=== PATIENT | female | born 1955 | race Caucasian/White ===

== ENCOUNTER → 2016-10-30 | Outpatient (REF) | payer OTHER ==
[~2016-10-30] MED LIST: AMLO10TA2 PO; AVAP150T31 PO; BYST20TA2 PO; GLIP10TA13 PO; HYDR10TAB PO; IRON65TA PO; JANU100T PO; LASI20TA PO; VITA100041 PO
[2016-10-30 14:04] LABS: PERCENT SATURATION 12.4 % (13.2-37.4)
== END ==
LOC: M LAB REF 12:43
PROVIDERS: ATTEND Internal Medicine Nephrology
DX: D50.9 Iron deficiency anemia, unspecified (principal)

== ENCOUNTER → 2018-03-30 | Outpatient (CLI) | payer OTHER | LOC: M RAD 07:26 | DX: N18.3 Chronic kidney disease, stage 3 (moderate) (principal); N28.1 Cyst of kidney, acquired | CPT/HCPCS: 76775 ==

== ENCOUNTER → 2019-12-02 | Outpatient (REF) | payer OTHER ==
[~2019-12-02] MED LIST changes: -AMLO10TA2 PO; +AMLO10TA5 PO; -GLIP10TA13 PO; +GLIP10TA18 PO; -LASI20TA PO; +LASI20TA3 PO; +VITA-182 PO; -VITA100041 PO
[2019-12-02 14:54] LABS: PERCENT SATURATION 11.6 % (13.2-45.0)
== END ==
LOC: M LAB REF 13:23
PROVIDERS: ATTEND Nurse Practitioner Family
DX: D50.9 Iron deficiency anemia, unspecified (principal)

== ENCOUNTER → 2020-09-28 | Outpatient (REF) | payer OTHER ==
[~2020-09-28] MED LIST changes: +AIRB1CHW PO; +ALLO100T PO; -AMLO10TA5 PO; +AMLO1TAB25 PO; +B-12100010 PO; +CALC-263 PO; +CALC1TAB30 PO; +FISH1000 PO; +GLIP2.5T6 PO; +KP V1TAB2 PO; +LEVO50TA5 PO; +NORV5TAB PO
[2020-09-28 17:57] LABS: BACTERIA, URINE AUTO 1+ (NEGATIVE); RBC, URINE AUTO 0 /HPF (0-3); SQUAMOUS EPITHELIAL CELL UR AU 4 /HPF (0-6); WBC, URINE AUTO 6 /HPF (0-3)
== END ==
LOC: M LAB REF 17:08
PROVIDERS: ATTEND Nurse Practitioner Family
DX: R31.0 Gross hematuria (principal)

== ENCOUNTER → 2020-12-07 | Outpatient (CLI) | payer OTHER ==
[~2020-12-07] MED LIST changes: +D3 +TAB PO; +VITA-243 PO
--- NOTE | 2020-12-07 09:09 | REP ---
INDICATION: NEOPLASM OF UTERUS. COMPARISON: Abdomen/pelvis CT dated 10/02/2020 none identified and enlarged uterus. TECHNIQUE: Transabdominal ultrasound of the pelvis. Patient declines endovaginal imaging. FINDINGS: The uterus is anteverted and significantly enlarged overall measuring 20.3 x 13.8 x 12.5 cm. There is a focal mass in the uterine fundus with heterogeneous echotexture measuring 13.9 x 13.4 x 12.9 cm, likely a large leiomyoma. The endometrium is obscured by the large uterine mass. The right and left ovaries are obscured by the large uterus and by bowel gas. The bladder is compressed by the enlarged uterus and partially filled. IMPRESSION: Large heterogeneous fundal uterine mass as described, likely a large leiomyoma. The endometrium and both right and left ovaries are obscured by this large mass and by bowel gas. No free fluid is identified. <Electronically signed by Seth Gomez > 12/07/20 0905
== END ==
LOC: M RAD 08:21
PROVIDERS: ATTEND Obstetrics & Gynecology
DX: D39.0 Neoplasm of uncertain behavior of uterus (principal)

== ENCOUNTER → 2020-12-09 | Outpatient (CLI) | payer OTHER ==
[~2020-12-09] MED LIST changes: +IRON65TA2 PO; +LEVO-86 PO
== END ==
LOC: M LABSMTC 09:13
PROVIDERS: ATTEND Anesthesiology
DX: Z01.812 Encounter for preprocedural laboratory examination (principal)

== ENCOUNTER 2020-12-14 06:01 | Day surgery (SDC) | payer OTHER ==
[~2020-12-14] VITALS: Ht 149.9 cm; Wt 121.5 kg
[~2020-12-14 06:01] MED LIST changes: -IRON65TA2 PO; -LEVO-86 PO; +LR 1,000 ML IV ONE
[2020-12-14] MEDS ORDERED: LEVO-86 PO (06:35)
[2020-12-14] MEDS ORDERED: IRON65TA2 PO (06:35)
[2020-12-14] MEDS ORDERED: ONDANSETRON 4MG/2ML VIAL As Ordered ONE (07:19)
[2020-12-14] MEDS ORDERED: LIDOCAINE 2% 100MG/5ML SDV (FOR ANES.) As Ordered ONE (07:19)
[2020-12-14] MEDS ORDERED: propofoL 200 MG/20 ML VIAL As Ordered ONE (07:19)
[2020-12-14] MEDS ORDERED: dexameTHASONE 4 MG/ML 1ML VIAL (J1100 PER 1MG) As Ordered ONE (07:19)
[2020-12-14] MEDS ORDERED: SCOPOLAMINE 1MG TRANSDERMAL PATCH TOP ONE (07:20)
[2020-12-14] MEDS ORDERED: fentaNYL 100 MCG/2 ML INJECTION (J3010) As Ordered ONE (07:20)
[2020-12-14] MEDS ORDERED: MIDAZOLAM INJ 2MG/2ML VIAL (J2250 PER 1MG) As Ordered ONE (07:20)
[2020-12-14] MEDS ORDERED: LIDOCAINE 5% OINT 30GM TUBE As Ordered ONE (07:24)
[2020-12-14] MEDS ORDERED: oxyCODONE 5MG TAB PO PRN (08:55)
[2020-12-14] MEDS ORDERED: ONDANSETRON 4MG/2ML VIAL IV PRN (08:55)
[2020-12-14] MEDS ORDERED: HYDROMORPHONE HCL 0.5 MG/ 0.5 ML SYRINGE (J1170 PER 1) IV PRN (08:55)
[2020-12-14] MEDS ORDERED: fentaNYL 100 MCG/2 ML INJECTION (J3010) IV PRN (08:55)
[2020-12-14] MEDS ORDERED: LR 1,000 ML IV SCH ×2 (08:55→09:00)
[2020-12-14] MEDS ORDERED: ACETAMINOPHEN TAB 650MG DOSE (2X325MG) PO PRN (09:00)
[2020-12-14 09:45] VITALS: BP 158/88
--- NOTE | 2020-12-14 10:29 | RO ---
OPERATIVE NOTE DATE OF OPERATION: 12/14/2020 PREOPERATIVE DIAGNOSIS/INDICATIONS FOR SURGERY: Postmenopausal bleeding and large fibroids. POSTOPERATIVE DIAGNOSIS: Postmenopausal bleeding and large fibroids. PROCEDURE: Fractional dilatation and curettage, hysteroscopy with use of MyoSure. SURGEON: Liliana Clay MD RADIOLOGY ORDERLY: None. ANESTHESIA: Laryngeal mask airway (LMA). BRIEF DESCRIPTION OF PROCEDURE AND FINDINGS: Heather was brought to the operating room where sufficient LMA anesthesia was induced, and she was prepped, draped, and positioned in the usual sterile fashion. We could not place the weighted speculum; in fact, the patient had a slight vaginal abrasion just from the prep due to small vagina. She had a large fibroid uterus extending well above umbilicus, and the uterus was well supported. So, we were not able to see the cervix particularly well but were able to grasp it with a single-toothed tenacula and then use those and guide the dilators and the scope manually and endocervical curettage was carried out with the Adyian, and hysteroscopy was carried out. We had the XL available but the patient has an atrophic, tiny menopausal cavity and, in fact, there is extension beyond the top of the cavity that does not perforate the uterus because the uterus reaches well up into the abdomen but the cavity itself was quite small with a tiny bit of shallow polypoid growth so we did make sure to sample that and send that with the pathology but it is not clear to me that this is not simply a result of the pressure on the tissues with the fibroids or whether there is actually an endocervical endometrial lesion. So, of course, pathology was sent and that was all sampled and, of course, some pictures taken to document that. The cavity itself does not extend up into the abdomen and that fits very well with the ultrasound where they could not find the endometrium in this distorted uterus and would be expected based on the findings of the cavity itself being well down in the pelvis and the uterus just being all fibroid and the cavity not contiguous with all that. So, we made sure to very carefully sample. The patient did spot a little from where it was sampled and, of course, from that tiny vaginal abrasion but there is no undue bleeding. After finishing with the MyoSure, a final pass of the curette was also taken. Normal cry was noted and the procedure ended with the instruments removed; a little pressure placed upon that abrasion with the gauze, and then the procedure ended. ESTIMATED BLOOD LOSS FOR THE PROCEDURE: about 10 mL. FLUID REPLACEMENT: Crystalloid. COMPLICATIONS: None. CONDITION AND DISPOSITION: Heather tolerated the procedure well and was recovering in the recovery room in good condition.
== END 2020-12-14 09:58 | disposition home or self-care (01) ==
LOC: M SDC 06:01
PROVIDERS: ATTEND Obstetrics & Gynecology
DX: N85.00 Endometrial hyperplasia, unspecified (principal); D25.9 Leiomyoma of uterus, unspecified; I10 Essential (primary) hypertension; E78.5 Hyperlipidemia, unspecified; E11.9 Type 2 diabetes mellitus without complications; Z79.899 Other long term (current) drug therapy
CPT/HCPCS: 58558; 88305; J1100; J2250; J2405; J3010

== ENCOUNTER → 2020-12-30 | Outpatient (CLI) | payer OTHER ==
[~2020-12-30] MED LIST changes: +IRON65TA2 PO; +LEVO-86 PO; -LR 1,000 ML IV ONE
== END ==
LOC: M LABSMTC 09:47
PROVIDERS: ATTEND Anesthesiology
DX: Z01.812 Encounter for preprocedural laboratory examination (principal); Z11.52 Encounter for screening for COVID-19

== ENCOUNTER → 2021-01-09 | Outpatient (CLI) | payer OTHER | LOC: M LABSMTC 09:32 | PROVIDERS: ATTEND Obstetrics & Gynecology | DX: Z01.812 Encounter for preprocedural laboratory examination (principal) ==

== ENCOUNTER 2021-01-11 08:41 | Day surgery (SDC) | payer OTHER ==
[~2021-01-11] VITALS: Ht 149.9 cm; Wt 120.7 kg
[~2021-01-11 08:41] MED LIST changes: +LR 1,000 ML IV ONE; +SCOPOLAMINE 1MG TRANSDERMAL PATCH TOP ONE; +ceFAZolin SOD 2 GM in IV 1 EA IV ONE
[2021-01-11] MEDS ORDERED: **UNRESOLVED NON-FORMULARY MED ORDER XX SCH (09:00)
[2021-01-11 09:17] LABS: HEMATOCRIT 43.6 % (36.0-47.0); HEMOGLOBIN 13.2 g/dl (12.0-15.5); MEAN CORPUSCULAR HEMOGLOBIN 28.4 pg (27.0-33.0); MEAN CORPUSCULAR HGB CONC 30.3 g/dl (32.0-36.5); PLATELET COUNT, AUTOMATED 258 10^3/uL (150-450); RED BLOOD COUNT 4.64 10^6/uL (4.00-5.40); WHITE BLOOD COUNT 11.4 10^3/uL (4.0-10.0)
[2021-01-11] MEDS ORDERED: ROCURONIUM BROMIDE 50 MG/5 ML VIAL As Ordered ONE ×2 (10:28→12:18)
[2021-01-11] MEDS ORDERED: SUGAMMADEX SODIUM 500 MG/5 ML VIAL (BRIDION) As Ordered ONE (10:28)
[2021-01-11] MEDS ORDERED: ONDANSETRON 4MG/2ML VIAL As Ordered ONE (10:28)
[2021-01-11] MEDS ORDERED: dexameTHASONE 4 MG/ML 1ML VIAL (J1100 PER 1MG) As Ordered ONE (10:28)
[2021-01-11] MEDS ORDERED: KETOROLAC 60MG 2ML VIAL As Ordered ONE (10:28)
[2021-01-11] MEDS ORDERED: ACETAMINOPHEN 1000MG 100ML IV BTL (OFIRMEV) (J0131 PER 10MG) As Ordered ONE ×2 (10:28→12:20)
[2021-01-11] MEDS ORDERED: LIDOCAINE 2% 100MG/5ML SDV (FOR ANES.) As Ordered ONE ×2 (10:28→12:18)
[2021-01-11] MEDS ORDERED: propofoL 200 MG/20 ML VIAL As Ordered ONE ×3 (10:28→12:11)
[2021-01-11] MEDS ORDERED: fentaNYL 100 MCG/2 ML INJECTION (J3010) As Ordered ONE (10:29)
[2021-01-11] MEDS ORDERED: MIDAZOLAM INJ 2MG/2ML VIAL (J2250 PER 1MG) As Ordered ONE (10:29)
[2021-01-11] MEDS ORDERED: ceFAZolin 2 GM/D5W 50 ML IV BAG (J0690 PER 500MG) As Ordered ONE (11:12)
[2021-01-11] MEDS ORDERED: ePHEDrine SULFATE 25 MG/5 ML(5MG/ML) SYRINGE As Ordered ONE ×3 (12:11→14:49)
[2021-01-11] MEDS ORDERED: ALBUTEROL 6.7GM INHALER **FOR ANES. CART/OMNICELL ONLY As Ordered ONE (12:11)
[2021-01-11] MEDS ORDERED: HYDROmorphone HCL 2 MG/ML 1ML VIAL (J1170) As Ordered ONE (12:50)
[2021-01-11] MEDS ORDERED: ceFAZolin 1GM VIAL (J0690 PER 500MG) As Ordered ONE (15:40)
[2021-01-11] MEDS ORDERED: MORPHINE 1MG/ML IN 0.9% NACL 100ML IV BAG As Ordered ONE (16:17)
[2021-01-11] MEDS ORDERED: EPIDURAL/PCA KEYS XX PRN (16:45)
[2021-01-11] MEDS: LR 1,000 ML IV SCH ×2 (16:45→20:26)
[2021-01-11] MEDS ORDERED: MORPHINE 1MG/ML IN 0.9% NACL 100ML IV BAG IV PRN (16:45)
[2021-01-11] MEDS ORDERED: NALBUPHINE HCL 10 MG/ML AMP (J2300) IV PRN (16:45)
[2021-01-11] MEDS ORDERED: NALOXONE INJ 0.4MG/1ML VIAL (J2310 PER 1MG) IV PRN (16:45)
[2021-01-11] MEDS ORDERED: diphenhydrAMINE 50MG/ML VIAL (J1200) IV PRN (16:45)
[2021-01-11] MEDS ORDERED: NS 1,000 ML IV SCH (16:45)
[2021-01-11] MEDS ORDERED: METOCLOPRAMIDE INJ 10MG/2ML VIAL (J2765 PER 1) IV PRN (17:10)
[2021-01-11] MEDS ORDERED: oxyCODONE 5MG TAB PO PRN (17:10)
[2021-01-11] MEDS ORDERED: LR 1,000 ML IV SCH (17:10)
[2021-01-11] MEDS ORDERED: HYDROMORPHONE HCL 0.5 MG/ 0.5 ML SYRINGE (J1170 PER 1) IV PRN (17:10)
[2021-01-11] MEDS ORDERED: fentaNYL 100 MCG/2 ML INJECTION (J3010) IV PRN (17:10)
[2021-01-11] MEDS ORDERED: ONDANSETRON 4MG/2ML VIAL IV PRN (17:10)
[2021-01-11 17:23] LABS: HEMATOCRIT 40.7 % (36.0-47.0); HEMOGLOBIN 12.8 g/dl (12.0-15.5); MEAN CORPUSCULAR HGB CONC 31.4 g/dl (32.0-36.5); MEAN CORPUSCULAR VOLUME 92.1 fl (80.0-96.0); PLATELET COUNT, AUTOMATED 235 10^3/uL (150-450); RED BLOOD COUNT 4.42 10^6/uL (4.00-5.40); WHITE BLOOD COUNT 22.4 10^3/uL (4.0-10.0)
[2021-01-11 17:45] VITALS: BP 131/77
[2021-01-11 18:15] VITALS: BP 126/71
[2021-01-11 18:45] VITALS: BP 127/70
[2021-01-11 18:49] VITALS: O2SAT 97
[2021-01-11 22:00] VITALS: BP 128/68
[2021-01-12 00:28] VITALS: O2SAT 94
[2021-01-12 02:00] VITALS: BP 130/78
[2021-01-12] MEDS: LR 1,000 ML IV SCH (04:12)
[2021-01-12 05:59] LABS: HEMATOCRIT 35.6 % (36.0-47.0); MEAN CORPUSCULAR HEMOGLOBIN 28.7 pg (27.0-33.0); MEAN CORPUSCULAR HGB CONC 30.9 g/dl (32.0-36.5); PLATELET COUNT, AUTOMATED 248 10^3/uL (150-450); RED BLOOD COUNT 3.83 10^6/uL (4.00-5.40)
[2021-01-12 06:00] VITALS: BP 139/63
[2021-01-12] MEDS ORDERED: NORCO, ANEXSIA 5/325MG TABLET (HYDROcodone/ACETAMINOPHEN) PO PRN (06:00)
[2021-01-12] MEDS ORDERED: LEVOTHYROXINE 75MCG TABLET (0.075MG) PO SCH (06:00)
[2021-01-12 06:15] LABS: CREATININE FOR GFR 1.58 MG/DL (0.55-1.30); GLOMERULAR FILTRATION RATE 34.9 (>45)
[2021-01-12] MEDS ORDERED: HumaLOG INSULIN (NovoLOG) PER UNIT SC ONE (08:30)
[2021-01-12 08:57] VITALS: BP 143/70
[2021-01-12 09:00] VITALS: O2SAT 94
[2021-01-12] MEDS ORDERED: allopurinoL 100 MG TAB PO SCH (09:00)
[2021-01-12] MEDS ORDERED: SITagliptin 50 MG TAB (JANUVIA) PO SCH (09:00)
[2021-01-12] MEDS ORDERED: amLODIPine 5 MG TAB PO SCH (09:00)
[2021-01-12] MEDS ORDERED: FUROSEMIDE 20 MG TAB PO SCH (09:00)
[2021-01-12] MEDS ORDERED: NEBIVOLOL 5 MG TAB (BYSTOLIC) PO SCH (09:00)
--- NOTE | 2021-01-12 09:41 | RO ---
OPERATIVE NOTE DATE OF OPERATION: 01/11/2021 PREOPERATIVE DIAGNOSIS/INDICATION FOR SURGERY: Large fibroid uterus. She also had history of hyperplasia with atypia. POSTOPERATIVE DIAGNOSIS: Large fibroid uterus. She also had hyperplasia with atypia with additional diagnosis of umbilical hernia. PROCEDURE: Total abdominal hysterectomy, bilateral salpingo-oophorectomy with removal of 1529 gm tumor after it had dried, as well as separate umbilical hernia with repair and cystotomy with repair and cystourethroscopy. SURGEON: Liliana Clay MD [employer]: None. ANESTHESIA: General tracheal anesthesia. BRIEF DESCRIPTION OF PROCEDURE AND FINDINGS: Heather was brought to the operating room where sufficient general tracheal anesthesia was induced. A vertical midline incision was made as had been discussed with her preoperatively and dissection was continued to the subcutaneous tissues. Bovie used as needed until the rectus fascia was reached. There was fullness near the umbilical stalk and we continued our dissection using the scalpel to dissect through the fascia and entered the peritoneum superiorly and began to dissect that down and ran into an omental herniation into a clear umbilical hernia. We resected the sac and the umbilical contents, some of which appeared necrotic and we did take some dissection to do this, but there was good hemostasis throughout this dissection, but the omental hernia was blocking our access, as well as the patient having some complaints about that. It did appear scarred in place and again some aspects of it appeared to have undergone some necrotic change. We then continued the dissection inferiorly and attempted to deliver the fibroid uterus. We had a reasonable size incision, but there were adhesions along the anterior left side to bowel and anterior abdominal wall. We dissected down some of those adhesions. We really could feel the normal anatomy. As it happens, this fibroid started in the lower uterine segment and shoved all that up and so at least identifiable uterine area did exists down in the pelvis, but it was well down under this, which was up above umbilicus. We worked very carefully anteriorly using the Metzenbaum, tried to dissect away those anterior adhesions, but we did, as we were trying to free the uterus, run into bladder there. At this point, we were not sure where on the bladder; it turned out this was on the dome; but at the time of the dissection, at this point we were not sure. We labeled that in this robustly built patient so we would be able to find it later and continued our dissection and in fact used this access so that we could delineate the bladder and try to free anteriorly; with dissection had to be very careful in its progression, there were several accessory blood vessels that were also there and dissected along on the left side. The rim of it did run over top of this fibroid, so it appeared to be rising sort of from the lower uterine segment and distorting that area. We were able to eventually free enough of the tissues to identify the ovary and fallopian tube on the left and that round ligament. We had dissected that down and get the bladder off and we decided to take the fibroid off because we just could not get access to the pelvis to free the other blood supply. So we resected much of the fibroid. It was degenerated and so it is solid, which she did have some oozing. With that, we were able to get access on the left side to the vascular supply and clamped, transected and ligated in several sections at least to get to the point of the broad ligament; and at this point, we still did not have access on the left side even to round, so we had to continue our progression very carefully. During this time period, the patient did have oozing from the uterus, but while we moved as quickly as we could and used the Bovie as appropriate, we still could not fully control that while elevating the uterus until we got the anatomy carefully identified, given that the anatomy had been greatly distorted, but had not loosen up the vascular supply, we really had to work carefully as we went down so as to avoid ureteral injury, etc. We decided, when we finally reached the broad ligament on the right side, to work medially to that and then come back for that ovary and tube, so carefully clamped transected and ligated that pedicle and then worked down the lateral aspect of what remained of the uterus there and then resecting as we went to achieve access. We continued to carefully clamp, transect and ligate along the lateral aspects of the uterus to control the uterine vasculature using the Samantha Farleyer and a 0 Vicryl suture, which was used throughout this portion of the case. With the cystotomy identified and the bladder thus more readily identified, we were able to get the bladder fully away down past the level of the cervix so that we could carefully come down to the uterosacral, clamp, transect and ligate them and then make the colpotomy and circumferential excise the entirety of the cervix and the remainder of the uterus that was attached. We then oversewed the vaginal cuff with angle stitches of 0 Vicryl and running lock stitches and 0 Vicryl to close the cuff. We found a couple of pumpers on the left side, which we then oversewed as well and then at this point, finally had good hemostasis. We then after irrigating, placing pressure, confirming a good hemostasis, went back got the right ovary and tube and then went back and used the suture where we had identified it. The patient had a very redundant bladder and somewhat reductant tissues and so fortunately we had labeled this and we were able to identify about a 1 cm cystotomy in the dome. We did a full-thickness closure with 4-0 plain just to make sure we had full closure and then we imbricated that with two layers of 3-0 Vicryl with only suturing the muscularis and then puckering it in and puckering it in with those, sort of, pursestring style closures; at which point, we had waterproof closure. We went ahead with moist covering on the patient, we frog legged her and were able to identify that we had a waterproof closure and no other evidence of injury to the bladder, normal ureters, although those pictures are not optimal, the view is not optimal with the patient in that position because we could not fully manipulate the scope, but we were able to use the 70 degree to get the views we needed. Then having scoped her and confirmed the cystotomy repair was good, we removed the laps we had placed and confirmed again that we had good hemostasis; but at that point, we already had probably a little over 2000; the total estimated blood loss was 2100, so we were under 2000 estimated blood loss and we had not even closed the subcutaneous and the fascia, so we did put some Gelfoam down at the cuff. We just did not want to risk having her have any further problem we could prevent and of course we had already irrigated copiously and then we went ahead and closed the hernia with 0 Ethibond and then closed the peritoneum with 0 Vicryl and used #1 PDS on a loop to close the fascia. We used #1 plain for the subcuticular tissues and a couple of layers of that because of the depth and then used hortencia on the skin. Again estimated blood loss for the entirety of the case was 2100. Fluid replacement: Crystalloid and 2 units of packed red blood cells (PRBCs). I think the second one will finish in recovery. Drains: None except the Garcia. Complications: We did have a cystotomy with repair. I have every expectation that will heal well and again weight of the lesion 1529 gm. Now it is at the end of the case after some degree of drying. Specimens: Again, uterus, ovary and tubes along with a lesion and of course the hernia sac and contents. Condition and Disposition; Heather tolerated the procedure well and was recovering in the recovery room in good condition.
[2021-01-12 10:00] VITALS: BP 147/78
[2021-01-12] MEDS ORDERED: HYDR-3713 PO (11:38)
== END 2021-01-12 12:40 | disposition home or self-care (01) ==
LOC: M SDC 08:41 → M MSPAV 17:34 → M SDC 01-12 12:40
PROVIDERS: ATTEND Obstetrics & Gynecology
DX: D25.9 Leiomyoma of uterus, unspecified (principal); N99.71 Accidental puncture and laceration of a genitourinary system organ or structure during a genitourinary system procedure; R10.2 Pelvic and perineal pain; K42.9 Umbilical hernia without obstruction or gangrene; N85.00 Endometrial hyperplasia, unspecified; I10 Essential (primary) hypertension; E03.9 Hypothyroidism, unspecified; E11.9 Type 2 diabetes mellitus without complications; Z79.899 Other long term (current) drug therapy; Z79.84 Long term (current) use of oral hypoglycemic drugs
CPT/HCPCS: 36415; 36430; 49585; 58150; 82330; 82565; 82947; 84132; 84295; 85014; 85027; 86850; 86900; 86901; 86920; 88302; 88307; 88341; 88342; 96360; 96361; J0131; J0690; J1100; J1170; J2250; J2405; J3010; P9016

== ENCOUNTER → 2022-06-27 | Outpatient (REF) | payer MEDICARE, OTHER ==
[~2022-06-27] MED LIST changes: +HYDR-3713 PO; -LR 1,000 ML IV ONE; -SCOPOLAMINE 1MG TRANSDERMAL PATCH TOP ONE; -ceFAZolin SOD 2 GM in IV 1 EA IV ONE
== END ==
LOC: M LAB REF 17:15
PROVIDERS: ATTEND Nurse Practitioner Family
DX: D50.9 Iron deficiency anemia, unspecified (principal)

== ENCOUNTER → 2023-03-28 | Outpatient (REF) | payer MEDICARE, OTHER ==
[2023-03-28 18:01] LABS: TOTAL PROTEIN,RANDOM URINE 114.1 MG/DL (0.0-14.0)
[2023-03-28 18:04] LABS: CREATININE,RANDOM URINE 61.2 MG/DL
== END ==
LOC: M LAB REF 16:49
PROVIDERS: ATTEND Nurse Practitioner Family
DX: R80.9 Proteinuria, unspecified (principal)

== ENCOUNTER → 2024-03-24 | Outpatient (REF) | payer MEDICARE, OTHER ==
[~2024-03-24] MED LIST changes: +BYST1TAB PO; -BYST20TA2 PO; +HYDR-161 PO; -HYDR10TAB PO
== END ==
LOC: M LAB REF 17:10
PROVIDERS: ATTEND Nurse Practitioner Family
DX: N39.0 Urinary tract infection, site not specified (principal)

== ENCOUNTER → 2025-04-05 | Outpatient (CLI) | payer MEDICARE, OTHER ==
[~2025-04-05] MED LIST changes: +CYCL-707; +DOCU100C16; +ELIQ2.5T PO; +GLIP-320 PO; -GLIP10TA18 PO; +GLIP2.5T46 PO; -GLIP2.5T6 PO; +NEBI20TA2; +TRAD5TAB; +TRAV2.5D
== END ==
LOC: M ONCM 11:36
PROVIDERS: ATTEND Dietitian, Registered
DX: C54.2 Malignant neoplasm of myometrium (principal); Z68.43 Body mass index [BMI] 50.0-59.9, adult; Z71.3 Dietary counseling and surveillance

== ENCOUNTER → 2025-04-14 | Outpatient (CLI) | payer MEDICARE, OTHER | LOC: M CARPUL 14:50 | PROVIDERS: ATTEND Internal Medicine Hematology & Oncology | DX: C55 Malignant neoplasm of uterus, part unspecified (principal); J98.11 Atelectasis; J84.10 Pulmonary fibrosis, unspecified ==

== ENCOUNTER → 2025-05-13 | Outpatient (CLI) | payer MEDICARE, OTHER ==
[~2025-05-13] VITALS: Ht 149.9 cm; Wt 109.1 kg
[~2025-05-13] MED LIST changes: +LIDO30CR18 TOP; +ONDA-84 PO; +PROC10TA5 PO
[2025-05-13 07:10] VITALS: TEMP 97.3
[2025-05-13] MEDS: ceFAZolin SODIUM 2 GM in DEXTROSE 5% (D5W) ADV/MINI-BAG 50 ML IV ONE (07:41)
[2025-05-13] MEDS: NS (Normal Saline) 0.9% 1,000 ML IV SCH (07:42)
[2025-05-13] MEDS: MIDAZOLAM INJ 2 MG/2 ML VIAL IV PRN (08:12)
[2025-05-13] MEDS: LIDOCAINE 1% MDV 20 ML VIAL SC SCH (08:32)
[2025-05-13 09:15] VITALS: BP 139/68; O2SAT 97
== END ==
LOC: M IRPRO 06:59
PROVIDERS: ATTEND Internal Medicine Hematology & Oncology
DX: C54.9 Malignant neoplasm of corpus uteri, unspecified (principal)
CPT/HCPCS: 36561; J0688; J1642; J2250; J3010

== ENCOUNTER → 2025-05-30 | Outpatient (POV) | payer MEDICARE, OTHER ==
[~2025-05-30] VITALS: Ht 149.9 cm; Wt 113.6 kg
[2025-05-30 08:29] VITALS: BP 138/80; O2SAT 100
== END ==
LOC: M IRPOV 08:25
PROVIDERS: ATTEND Registered Nurse School
DX: Z45.2 Encounter for adjustment and management of vascular access device (principal); C54.1 Malignant neoplasm of endometrium

== ENCOUNTER 2025-06-01 15:59 | Inpatient (IN) | payer MEDICARE, OTHER ==
[~2025-06-01] VITALS: Ht 149.9 cm; Wt 113.8 kg
[~2025-06-01 15:59] MED LIST changes: -TRAD5TAB; +TRAD5TAB PO; -TRAV2.5D; +TRAV2.5D OU
[2025-06-01] MEDS ORDERED: HEPARIN LOCK FLUSH 100 UNITS/ML 3 ML SYRINGE IV PRN (16:35)
[2025-06-01] MEDS ORDERED: SODIUM CHLORIDE 0.9% INJ 10 ML SYR IV PRN (16:35)
[2025-06-01] MEDS ORDERED: FILGRASTIM 300 MCG/0.5 ML SYRINGE **SC ADMINISTRATION ONLY SC ONE (16:40)
[2025-06-01] MEDS: NS (Normal Saline) 0.9% 1,000 ML IV ONE (17:14)
[2025-06-01] MEDS: ACETAMINOPHEN 500 MG TAB PO ONE (17:14)
[2025-06-01 17:33] LABS: INR 1.46
[2025-06-01] MEDS: CEFEPIME HCL 2 GM in DEXTROSE 5% (D5W) ADV/MINI-BAG 50 ML IV ONE (17:37)
[2025-06-01] MEDS: VANCOMYCIN HCL 2,000 MG, VIAL MATE ADAPTER 1 EACH in NS 500 ML IV ONE (17:37)
[2025-06-01 18:00] LABS: C REACTIVE PROTEIN QUANTITATIV 23.05 MG/DL (<1.0)
[2025-06-01] MEDS: FILGRASTIM 480 MCG/0.8 ML SYRINGE **SC ADMINISTRATION ONLY SC ONE (18:05)
[2025-06-01 19:20] LABS: AMORPHOUS SEDIMENT MODERATE (NEGATIVE); APPEARANCE, URINE CLOUDY (CLEAR); BACTERIA, URINE AUTO NEGATIVE (NEGATIVE); BILIRUBIN, URINE AUTO NEGATIVE (NEGATIVE); BLOOD, URINE BLOOD 1+ (NEGATIVE); GLUCOSE, URINE (UA) AUTO 1+ mg/dL (NEGATIVE); KETONE, URINE AUTO NEGATIVE (NEGATIVE); LEUKOCYTE ESTERASE, URINE AUTO NEGATIVE (NEGATIVE); MUCUS, URINE SMALL (NEGATIVE); NITRITE, URINE AUTO NEGATIVE (NEGATIVE); PROTEIN, URINE AUTO 3+ mg/dL (NEGATIVE); RBC, URINE AUTO 1 /HPF (0-3); SPECIFIC GRAVITY URINE AUTO 1.012 (1.002-1.035); SQUAMOUS EPITHELIAL CELL UR AU 1 /HPF (0-6); UROBILINOGEN, URINE AUTO 0.2 mg/dL (0.0-2.0); WBC, URINE AUTO 3 /HPF (0-3)
[2025-06-01] MEDS ORDERED: GLIP-318 PO (19:25)
[2025-06-01] MEDS ORDERED: HOME MED LIST COMPLETE! XX SCH (19:25)
[2025-06-01] MEDS ORDERED: GLUCAGON INJ 1 MG VIAL SC PRN (19:45)
[2025-06-01] MEDS ORDERED: GLUCOSE 4 GM CHEW PO PRN (19:45)
[2025-06-01] MEDS ORDERED: LIDOCAINE/PRILOCAINE CREAM 5 GM TUBE TOP SCH (19:45)
[2025-06-01] MEDS ORDERED: CEFEPIME HCL 2 GM in DEXTROSE 5% (D5W) ADV/MINI-BAG 50 ML IV SCH (19:45)
[2025-06-01] MEDS ORDERED: ACETAMINOPHEN 325 MG TAB PO PRN (19:45)
[2025-06-01] MEDS ORDERED: MAALOX 30 ML SUSP *UDC PO PRN (19:45)
[2025-06-01] MEDS ORDERED: MOM 30 ML SUSPENSION UDC PO PRN (19:45)
[2025-06-01] MEDS ORDERED: DEXTROSE 50% 50 ML SYRINGE IV PRN (19:45)
[2025-06-01] MEDS: DOCUSATE SODIUM 100 MG CAPSULE PO SCH (20:48)
[2025-06-01 21:01] LABS: BASO # 0.0 10^3/uL (0.0-0.2); BASO % 2.2 % (0.0-1.0); EOS # 0.0 10^3/uL (0.0-0.5); EOS % 2.2 % (0.0-3.0); LYMPH # 0.3 10^3/uL (1.5-5.0); LYMPH % 54.3 % (24.0-44.0); MONO # 0.0 10^3/uL (0.0-0.8); MONO % 4.3 % (2.0-8.0); NEUTROPHILS % 37.0 % (36.0-66.0)
[2025-06-01 21:06] LABS: ERYTHROCYTE SEDIMENTATION RATE 32 mm/hr (0-30)
[2025-06-01 21:15] LABS: INR 1.53
[2025-06-01 21:19] LABS: NEUTROPHILS # 0.2 10^3/uL (1.5-8.5)
[2025-06-01 21:20] LABS: PLATELET COUNT, AUTOMATED 43 10^3/uL (150-450)
[2025-06-01 21:30] LABS: ALT/SGPT 64.0 U/L (7.0-40); AST/SGOT 21.0 U/L (<34); C REACTIVE PROTEIN QUANTITATIV 22.07 MG/DL (<1.0); CALCIUM LEVEL 6.4 MG/DL (8.3-10.6); CARBON DIOXIDE LEVEL 20.0 MMOL/L (20-31); CHLORIDE LEVEL 107.0 MMOL/L (98-107); CREATININE FOR GFR 2.05 MG/DL (0.55-1.30); GLOMERULAR FILTRATION RATE 25.6 (>39); POTASSIUM SERUM 3.6 MMOL/L (3.5-5.1); SODIUM LEVEL 135.0 MMOL/L (136-145)
[2025-06-01 21:58] VITALS: BP 172/79; TEMP 98.5; O2SAT 98
[2025-06-02] VITALS (7 sets, daily range): BP systolic 115–130; BP diastolic 57–66; TEMP 97.3–99; O2SAT 95–98
[2025-06-02 06:16] LABS: PLATELET COUNT, AUTOMATED 42 10^3/uL (150-450)
[2025-06-02 06:39] LABS: ALT/SGPT 53.0 U/L (7.0-40); AST/SGOT 17.0 U/L (<34); CALCIUM LEVEL 6.4 MG/DL (8.3-10.6); CARBON DIOXIDE LEVEL 20.0 MMOL/L (20-31); CHLORIDE LEVEL 107.0 MMOL/L (98-107); CREATININE FOR GFR 2.23 MG/DL (0.55-1.30); GLOMERULAR FILTRATION RATE 23.2 (>39); MAGNESIUM LEVEL 1.5 MG/DL (1.8-2.4); POTASSIUM SERUM 3.4 MMOL/L (3.5-5.1); SODIUM LEVEL 133.0 MMOL/L (136-145)
[2025-06-02] MEDS: LEVOTHYROXINE 75 MCG TABLET (0.075 MG) PO SCH (06:46)
[2025-06-02] MEDS: CEFEPIME HCL 1 GM in DEXTROSE 5% (D5W) ADV/MINI-BAG 50 ML IV SCH (06:46)
[2025-06-02] MEDS: POTASSIUM CHLORIDE 10MEQ SR TABLET PO ONE (09:18)
[2025-06-02] MEDS: NEBIVOLOL 5 MG TAB PO SCH (09:18)
[2025-06-02] MEDS: MAG SULF 1GM/100ML (MAG RUN) 1 GM in IV 1 EA IV ONE (09:19)
[2025-06-02] MEDS: VANCOMYCIN HCL 500 MG in DEXTROSE 5% (D5W) MINI-BAG PLU 100 ML IV SCH (09:19)
[2025-06-02] MEDS ORDERED: VANCOMYCIN HCL 1,000 MG, VIAL MATE ADAPTER 1 EACH in NS 250 ML IV SCH (12:00)
[2025-06-02] MEDS: INSULIN LISPRO (NovoLOG) PER UNIT SC SCH ×2 (18:00)
[2025-06-02] MEDS: FILGRASTIM 480 MCG/0.8 ML SYRINGE **SC ADMINISTRATION ONLY SC SCH (19:00)
[2025-06-03] VITALS (10 sets, daily range): BP systolic 108–134; BP diastolic 52–67; TEMP 97.1–98.6; O2SAT 93–98
[2025-06-03 08:31] LABS: BASO # 0.0 10^3/uL (0.0-0.2); BASO % 0.5 % (0.0-1.0); EOS # 0.0 10^3/uL (0.0-0.5); EOS % 0.5 % (0.0-3.0); LYMPH # 0.7 10^3/uL (1.5-5.0); LYMPH % 30.0 % (24.0-44.0); MONO # 0.1 10^3/uL (0.0-0.8); MONO % 5.1 % (2.0-8.0); NEUTROPHILS # 1.4 10^3/uL (1.5-8.5); NEUTROPHILS % 63.9 % (36.0-66.0)
[2025-06-03 08:36] LABS: PLATELET COUNT, AUTOMATED 55 10^3/uL (150-450)
[2025-06-03] MEDS: INSULIN LISPRO (NovoLOG) PER UNIT SC SCH ×2 (08:45→20:03)
[2025-06-03 08:48] LABS: VANCOMYCIN LEVEL TROUGH 14.1 UG/ML (10.0-20.0)
[2025-06-03 08:49] LABS: ALT/SGPT 48.0 U/L (7.0-40); AST/SGOT 23.0 U/L (<34); CALCIUM LEVEL 6.8 MG/DL (8.3-10.6); CARBON DIOXIDE LEVEL 21.0 MMOL/L (20-31); CHLORIDE LEVEL 106.0 MMOL/L (98-107); CREATININE FOR GFR 2.27 MG/DL (0.55-1.30); GLOMERULAR FILTRATION RATE 22.7 (>39); POTASSIUM SERUM 3.6 MMOL/L (3.5-5.1); SODIUM LEVEL 136.0 MMOL/L (136-145)
[2025-06-03 09:37] LABS: MAGNESIUM LEVEL 1.8 MG/DL (1.8-2.4)
[2025-06-03] MEDS: ONDANSETRON 4MG 2ML VIAL IV PRN (22:55)
[2025-06-04 04:13] VITALS: BP 124/65; TEMP 97.2; O2SAT 97
[2025-06-04 04:44] LABS: PLATELET COUNT, AUTOMATED 101 10^3/uL (150-450)
[2025-06-04 05:12] LABS: BASOPHILS 1 % (0-1); LYMPHOCYTES 14 % (16-44); MONOCYTES 2 % (0-5); NEUTROPHILS 79 % (28-66)
[2025-06-04 05:15] LABS: ALT/SGPT 50.0 U/L (7.0-40); AST/SGOT 28.0 U/L (<34); CALCIUM LEVEL 6.9 MG/DL (8.3-10.6); CARBON DIOXIDE LEVEL 21.0 MMOL/L (20-31); CHLORIDE LEVEL 106.0 MMOL/L (98-107); CREATININE FOR GFR 2.1 MG/DL (0.55-1.30); GLOMERULAR FILTRATION RATE 24.9 (>39); PLATELET ESTIMATE DECREASED (NORMAL); POTASSIUM SERUM 3.5 MMOL/L (3.5-5.1); SODIUM LEVEL 138.0 MMOL/L (136-145)
[2025-06-04 08:22] VITALS: BP 143/67; TEMP 97.1; O2SAT 96
[2025-06-04] MEDS: KCL 20MEQ IN D5/0.45NS 1000ML 1,000 ML IV SCH (09:54)
[2025-06-04 12:25] VITALS: BP 132/60; TEMP 96.8; O2SAT 95
[2025-06-04 15:43] VITALS: BP 131/65; TEMP 97.2; O2SAT 98
[2025-06-04 20:00] VITALS: BP 125/65; TEMP 97.3; O2SAT 97
[2025-06-04 23:40] VITALS: BP 117/61; TEMP 98.2; O2SAT 97
[2025-06-05 04:16] VITALS: BP 118/68; TEMP 97.2; O2SAT 97
[2025-06-05 08:00] VITALS: BP 123/66; TEMP 97.6; O2SAT 98
[2025-06-05 08:06] LABS: PLATELET COUNT, AUTOMATED 153 10^3/uL (150-450)
[2025-06-05 08:44] LABS: ALT/SGPT 39.0 U/L (7.0-40); AST/SGOT 21.0 U/L (<34); CALCIUM LEVEL 6.6 MG/DL (8.3-10.6); CARBON DIOXIDE LEVEL 21.0 MMOL/L (20-31); CHLORIDE LEVEL 110.0 MMOL/L (98-107); CREATININE FOR GFR 1.77 MG/DL (0.55-1.30); GLOMERULAR FILTRATION RATE 30.6 (>39); MAGNESIUM LEVEL 1.7 MG/DL (1.8-2.4); POTASSIUM SERUM 4.1 MMOL/L (3.5-5.1); SODIUM LEVEL 139.0 MMOL/L (136-145)
[2025-06-05 08:49] LABS: LYMPHOCYTES 31 % (16-44); MONOCYTES 4 % (0-5); MYELOCYTES 1 % (0-0); NEUTROPHILS 61 % (28-66)
[2025-06-05 08:50] LABS: PLATELET ESTIMATE NORMAL (NORMAL)
[2025-06-05 08:52] LABS: DOHLE BODIES 1+
[2025-06-05 12:05] VITALS: BP 131/71; TEMP 98; O2SAT 100
[2025-06-05 16:24] VITALS: BP 141/68; TEMP 97.3; O2SAT 99
[2025-06-05 18:44] LABS: FUNGITELL, SERUM < 31 pg/mL (<60)
[2025-06-05 19:45] VITALS: BP 151/68; TEMP 97; O2SAT 97
[2025-06-05 23:41] VITALS: BP 129/73; TEMP 97.2; O2SAT 97
[2025-06-06 03:57] VITALS: BP 117/58; TEMP 97.3; O2SAT 96
[2025-06-06] MEDS ORDERED: LEVO75TAB PO (07:53)
[2025-06-06 08:21] VITALS: BP 123/57; TEMP 98; O2SAT 96
[2025-06-06 09:03] VITALS: BP 123/57
[2025-06-06 09:05] LABS: BASO # 0.0 10^3/uL (0.0-0.2); BASO % 0.5 % (0.0-1.0); EOS # 0.0 10^3/uL (0.0-0.5); EOS % 0.0 % (0.0-3.0); LYMPH # 1.2 10^3/uL (1.5-5.0); LYMPH % 19.5 % (24.0-44.0); MONO # 0.6 10^3/uL (0.0-0.8); MONO % 9.9 % (2.0-8.0); NEUTROPHILS # 3.6 10^3/uL (1.5-8.5); NEUTROPHILS % 61.0 % (36.0-66.0); PLATELET COUNT, AUTOMATED 203 10^3/uL (150-450)
[2025-06-06 09:22] LABS: ALT/SGPT 33.0 U/L (7.0-40); AST/SGOT 20.0 U/L (<34); CALCIUM LEVEL 6.8 MG/DL (8.3-10.6); CARBON DIOXIDE LEVEL 23.0 MMOL/L (20-31); CHLORIDE LEVEL 112.0 MMOL/L (98-107); CREATININE FOR GFR 1.61 MG/DL (0.55-1.30); GLOMERULAR FILTRATION RATE 34.2 (>39); MAGNESIUM LEVEL 1.6 MG/DL (1.8-2.4); POTASSIUM SERUM 4.2 MMOL/L (3.5-5.1); SODIUM LEVEL 143.0 MMOL/L (136-145)
[2025-06-06] MEDS: SODIUM CHLORIDE 0.9% INJ 10 ML SYR IV PRN (10:32)
[2025-06-06] MEDS: HEPARIN LOCK FLUSH 100 UNITS/ML 3 ML SYRINGE IV PRN (10:32)
[2025-06-08] MEDS ORDERED: VITA500S3 SL (10:19)
[2025-06-08] MEDS ORDERED: FERR325T3 PO (10:19)
== END 2025-06-06 10:45 | disposition home or self-care (01) | DRG 871 ==
LOC: M ED 15:59 → M ED INP 19:44 → M PCU 21:58
PROVIDERS: ADMIT Student in an Organized Health Care Education/Training Program; ATTEND Family Medicine
PROC: 30233N1 Transfusion of Nonautologous Red Blood Cells into Peripheral Vein, Percutaneous Approach (ICD-10-PCS; principal; 2025-06-03)
DX: A41.9 Sepsis, unspecified organism (principal); J18.9 Pneumonia, unspecified organism; D61.810 Antineoplastic chemotherapy induced pancytopenia; C49.5 Malignant neoplasm of connective and soft tissue of pelvis; C49.9 Malignant neoplasm of connective and soft tissue, unspecified; D70.9 Neutropenia, unspecified; E03.9 Hypothyroidism, unspecified; N18.9 Chronic kidney disease, unspecified; E11.22 Type 2 diabetes mellitus with diabetic chronic kidney disease; I12.9 Hypertensive chronic kidney disease with stage 1 through stage 4 chronic kidney disease, or unspecified chronic kidney disease; C55 Malignant neoplasm of uterus, part unspecified; Z92.21 Personal history of antineoplastic chemotherapy; Z79.899 Other long term (current) drug therapy; D69.6 Thrombocytopenia, unspecified

== ENCOUNTER 2025-06-21 10:48 | Observation (INO) | payer MEDICARE, OTHER ==
[~2025-06-21] VITALS: Ht 149.9 cm; Wt 114.6 kg
[~2025-06-21 10:48] MED LIST changes: +FERR325T3 PO; +GLIP-318 PO; +LEVO75TAB PO; +VITA500S3 SL
[2025-06-21 12:50] LABS: BASO # 0.0 10^3/uL (0.0-0.2); BASO % 1.8 % (0.0-1.0); EOS # 0.0 10^3/uL (0.0-0.5); EOS % 1.8 % (0.0-3.0); LYMPH # 0.5 10^3/uL (1.5-5.0); LYMPH % 87.3 % (24.0-44.0); MONO # 0.0 10^3/uL (0.0-0.8); MONO % 1.8 % (2.0-8.0); NEUTROPHILS % 7.3 % (36.0-66.0)
[2025-06-21 13:20] LABS: CALCIUM LEVEL 8.3 MG/DL (8.3-10.6); CARBON DIOXIDE LEVEL 28.0 MMOL/L (20-31); CHLORIDE LEVEL 106.0 MMOL/L (98-107); CREATININE FOR GFR 1.69 MG/DL (0.55-1.30); GLOMERULAR FILTRATION RATE 32.3 (>39); POTASSIUM SERUM 6.0 MMOL/L (3.5-5.1); SODIUM LEVEL 143.0 MMOL/L (136-145)
[2025-06-21 13:21] LABS: NEUTROPHILS # 0.0 10^3/uL (1.5-8.5); PLATELET COUNT, AUTOMATED 71 10^3/uL (150-450)
[2025-06-21] MEDS ORDERED: FERR1TAB8 PO (13:51)
[2025-06-21] MEDS ORDERED: SODIUM CHLORIDE 0.9% INJ 10 ML SYR IV PRN (13:55)
[2025-06-21] MEDS ORDERED: HOME MED LIST COMPLETE! XX SCH (13:55)
[2025-06-21] MEDS ORDERED: MAGNESIUM CITRATE 300 ML BTL PO ONE (13:55)
[2025-06-21] MEDS ORDERED: HEPARIN LOCK FLUSH 100 UNITS/ML 3 ML SYRINGE IV PRN (13:55)
[2025-06-21] MEDS: PATIROMER SORBITEX CALCIUM 8.4GM POWDER PACKET PO ONE (14:53)
[2025-06-21] MEDS: HumuLIN R (REGULAR) INSULIN (NovoLIN R) **100 U/ML** PER UNIT IV ONE (15:08)
[2025-06-21] MEDS: NS (Normal Saline) 0.9% 1,000 ML IV ONE ×2 (15:08→17:05)
[2025-06-21] MEDS: DEXTROSE 50% 50 ML SYRINGE IV ONE (15:08)
[2025-06-21] MEDS ORDERED: GLUCAGON INJ 1 MG VIAL SC PRN (19:05)
[2025-06-21] MEDS ORDERED: GLUCOSE 4 GM CHEW PO PRN (19:05)
[2025-06-21] MEDS ORDERED: DEXTROSE 50% 50 ML SYRINGE IV PRN (19:05)
[2025-06-21] MEDS: NS (Normal Saline) 0.9% 1,000 ML IV SCH (19:10)
[2025-06-21 19:28] LABS: CALCIUM LEVEL 7.5 MG/DL (8.3-10.6); CARBON DIOXIDE LEVEL 27.0 MMOL/L (20-31); CHLORIDE LEVEL 108.0 MMOL/L (98-107); CREATININE FOR GFR 1.57 MG/DL (0.55-1.30); GLOMERULAR FILTRATION RATE 35.3 (>39); POTASSIUM SERUM 5.3 MMOL/L (3.5-5.1); SODIUM LEVEL 145.0 MMOL/L (136-145)
[2025-06-21] MEDS: cefTRIAXone SOD 1 GM in DEXTROSE 5% (D5W) ADV/MINI-BAG 50 ML IV SCH (20:56)
[2025-06-21] MEDS: LACTULOSE 20 GM/30 ML SYRUP UDC PO ONE (20:57)
[2025-06-21] MEDS: MIRALAX *UNIT DOSE* 17 GM PACKET PO SCH (20:57)
[2025-06-21] MEDS: **hydrALAZINE** 10 MG TAB PO SCH (20:57)
[2025-06-21] MEDS: HEPARIN SOD 5000 UNITS/ML 1 ML VIAL/SYRINGE SQ SCH (20:58)
[2025-06-21] MEDS: INSULIN LISPRO (NovoLOG) PER UNIT SC SCH (21:00)
[2025-06-21 22:10] VITALS: BP 160/79; TEMP 99; O2SAT 96
[2025-06-21] MEDS: HYDROCORTISONE 1% TOP SCH (23:07)
[2025-06-22 03:20] VITALS: BP 158/78; TEMP 98.8; O2SAT 95
[2025-06-22] MEDS: LEVOTHYROXINE 75 MCG TABLET (0.075 MG) PO SCH (05:12)
[2025-06-22 06:16] VITALS: O2SAT 96
[2025-06-22 06:16] LABS: PLATELET COUNT, AUTOMATED 55 10^3/uL (150-450)
[2025-06-22 06:46] LABS: CALCIUM LEVEL 7.5 MG/DL (8.3-10.6); CARBON DIOXIDE LEVEL 26.0 MMOL/L (20-31); CHLORIDE LEVEL 108.0 MMOL/L (98-107); CREATININE FOR GFR 1.56 MG/DL (0.55-1.30); GLOMERULAR FILTRATION RATE 35.5 (>39); POTASSIUM SERUM 5.1 MMOL/L (3.5-5.1); SODIUM LEVEL 144.0 MMOL/L (136-145)
[2025-06-22] MEDS: INSULIN LISPRO (NovoLOG) PER UNIT SC SCH (07:30)
[2025-06-22] MEDS: amLODIPine 5 MG TAB PO SCH (07:48)
[2025-06-22 11:38] VITALS: BP 123/64; TEMP 99.5; O2SAT 93
[2025-06-22 12:13] VITALS: BP 127/65; TEMP 98.8; O2SAT 93
[2025-06-22 13:13] VITALS: BP 133/68; TEMP 98.4; O2SAT 93
[2025-06-22] MEDS: FLUCONAZOLE 50 MG TABLET PO ONE (17:08)
[2025-06-22 20:39] VITALS: BP 153/79; TEMP 97.9; O2SAT 95
[2025-06-22] MEDS: MICONAZOLE-7 VAGINAL 2% CREAM 47.7 GM PV SCH (21:53)
[2025-06-23 04:12] VITALS: BP 135/60; TEMP 98.1; O2SAT 92
[2025-06-23 08:46] VITALS: BP 137/62; O2SAT 96
[2025-06-23] MEDS ORDERED: METR-265 PO (11:23)
[2025-06-23] MEDS ORDERED: FLUC100T3 PO (11:23)
[2025-06-23] MEDS ORDERED: CIPR-250 PO (11:23)
[2025-06-23 12:00] VITALS: BP 137/64; TEMP 98.6; O2SAT 92
[2025-06-23] MEDS: FLUCONAZOLE 100 MG TAB PO SCH (12:12)
[2025-06-23 13:00] VITALS: BP 137/64
[2025-06-23] MEDS ORDERED: CIPROFLOXACIN 250 MG TAB PO SCH (18:00)
== END 2025-06-23 14:14 | disposition home or self-care (01) ==
LOC: M ED 10:48 → M ED INP 18:09 → M MSPAV 22:01
PROVIDERS: ADMIT Student in an Organized Health Care Education/Training Program; ATTEND Student in an Organized Health Care Education/Training Program
DX: E87.5 Hyperkalemia (principal); D70.9 Neutropenia, unspecified; K59.00 Constipation, unspecified; N18.9 Chronic kidney disease, unspecified; D61.810 Antineoplastic chemotherapy induced pancytopenia; D70.1 Agranulocytosis secondary to cancer chemotherapy; E11.9 Type 2 diabetes mellitus without complications; I10 Essential (primary) hypertension; E03.9 Hypothyroidism, unspecified; C49.9 Malignant neoplasm of connective and soft tissue, unspecified; Z79.84 Long term (current) use of oral hypoglycemic drugs; Z79.899 Other long term (current) drug therapy
CPT/HCPCS: 36415; 74018; 80048; 85014; 85018; 85025; 85027; 85049; 85055; 86850; 86900; 86901; 86920; 93005; 96361; 96365; 96366; 96372; 96375; 96376; 97161; 99285; G0378; J0696; J1815; P9040

== ENCOUNTER → 2025-06-29 | Outpatient (CLI) | payer MEDICARE, OTHER ==
[~2025-06-29] MED LIST changes: +CIPR-250 PO; +CIPR250T3 PO; +FERR1TAB8 PO; +FLUC100T3 PO; +FURO20TA2 PO; +LINE1TAB6 PO; +METR-265 PO
== END ==
LOC: M RAD 14:22
PROVIDERS: ATTEND Student in an Organized Health Care Education/Training Program
DX: C49.9 Malignant neoplasm of connective and soft tissue, unspecified (principal); M79.89 Other specified soft tissue disorders

== ENCOUNTER 2025-07-01 11:17 | Inpatient (IN) | payer MEDICARE, OTHER ==
[~2025-07-01] VITALS: Ht 149.9 cm; Wt 114.1 kg
[~2025-07-01 11:17] MED LIST changes: -CIPR250T3 PO; -FURO20TA2 PO; -LINE1TAB6 PO; +UNRESOLVED CLARIFICATION ENTRY XX SCH
[2025-07-01] MEDS ORDERED: ISOVUE-370 76% 100 ML VIAL As Ordered ONE (11:57)
[2025-07-01 12:40] LABS: BASO # 0.0 10^3/uL (0.0-0.2); BASO % 0.3 % (0.0-1.0); EOS # 0.0 10^3/uL (0.0-0.5); EOS % 0.0 % (0.0-3.0); LYMPH # 0.4 10^3/uL (1.5-5.0); LYMPH % 2.9 % (24.0-44.0); MONO # 1.6 10^3/uL (0.0-0.8); MONO % 12.5 % (2.0-8.0); NEUTROPHILS # 10.9 10^3/uL (1.5-8.5); NEUTROPHILS % 83.3 % (36.0-66.0); PLATELET COUNT, AUTOMATED 220 10^3/uL (150-450)
[2025-07-01] MEDS: PIPERACILLIN/TAZOBACTAM SOD 4.5 GM in DEXTROSE 5% (D5W) ADV/MINI-BAG 50 ML IV ONE (12:54)
[2025-07-01] MEDS: ACETAMINOPHEN *IV* 1,000 MG in IV 1 EA IV ONE (12:55)
[2025-07-01] MEDS: NS (Normal Saline) 0.9% 1,000 ML IV ONE ×2 (12:55→15:27)
[2025-07-01 13:01] LABS: VENOUS BASE EXCESS -0.2 (-2.0-2.0); VENOUS HCO3 24.5 MMOL/L (23.0-27.0); VENOUS O2 SATURATION 88.3 % (60.0-80.0); VENOUS PARTIAL PRESSURE CO2 40.4 mmHg (38.0-50.0); VENOUS PARTIAL PRESSURE O2 59.7 mmHg (30.0-50.0); VENOUS PH 7.401 UNITS (7.330-7.430); VENOUS STANDARD HCO3 24.2 MMOL/L; VENOUS TOTAL CO2 25.8 MMOL/L (24.0-28.0)
[2025-07-01] MEDS: LIDOCAINE W/EPINEPHrine 1% 20 ML VIAL SC ONE (13:05)
[2025-07-01 13:07] LABS: ALT/SGPT 27.0 U/L (7.0-40); AST/SGOT 26.0 U/L (<34); CALCIUM LEVEL 7.2 MG/DL (8.3-10.6); CARBON DIOXIDE LEVEL 26.0 MMOL/L (20-31); CHLORIDE LEVEL 101.0 MMOL/L (98-107); CREATININE FOR GFR 1.57 MG/DL (0.55-1.30); GLOMERULAR FILTRATION RATE 35.3 (>39); POTASSIUM SERUM 3.6 MMOL/L (3.5-5.1); SODIUM LEVEL 136.0 MMOL/L (136-145)
[2025-07-01 13:42] LABS: KETONE, URINE AUTO RFX NEGATIVE (NEGATIVE); LEUKOCYTE ESTERASE UR AUTO RFX NEGATIVE (NEGATIVE); MUCUS, URINE RFX SMALL (NEGATIVE); NITRITE, URINE AUTO RFX NEGATIVE (NEGATIVE); RBC, URINE AUTO RFX 1 /HPF (0-3); SQUAM EPITHELIAL CELL UR AURFX 4 /HPF (0-6); WBC, URINE AUTO RFX 1 /HPF (0-3)
[2025-07-01] MEDS ORDERED: CIPR250T3 PO (14:32)
[2025-07-01] MEDS ORDERED: FURO20TA2 PO (14:36)
[2025-07-01] MEDS ORDERED: HOME MED LIST COMPLETE! XX SCH (14:40)
[2025-07-01] MEDS ORDERED: VANCOMYCIN HCL 1,000 MG, VIAL MATE ADAPTER 1 EACH in NS 250 ML IV SCH (14:50)
[2025-07-01 17:05] VITALS: BP 145/91; TEMP 98.4; O2SAT 99
[2025-07-01] MEDS: VANCOMYCIN HCL 1,750 MG, VIAL MATE ADAPTER 1 EACH in NS 500 ML IV ONE (17:47)
[2025-07-01 20:00] VITALS: BP 120/65; TEMP 98.2; O2SAT 92
[2025-07-01] MEDS: PIPERACILLIN/TAZOBACTAM SOD 3.375 GM in DEXTROSE 5% (D5W) ADV/MINI-BAG 50 ML IV SCH (20:45)
[2025-07-01] MEDS: HEPARIN SOD 5000 UNITS/ML 1 ML VIAL/SYRINGE SC SCH (20:45)
[2025-07-01 22:22] VITALS: TEMP 101.9
[2025-07-01] MEDS: ACETAMINOPHEN 325 MG TAB PO PRN (22:22)
[2025-07-01 23:35] VITALS: TEMP 102.2
[2025-07-01] MEDS: ACETAMINOPHEN *IV* 500 MG in IV 1 EA IV ONE (23:50)
[2025-07-02] VITALS (8 sets, daily range): BP systolic 128–149; BP diastolic 48–81; TEMP 99–101.4; O2SAT 92–96
[2025-07-02 06:33] LABS: BASO # 0.0 10^3/uL (0.0-0.2); BASO % 0.3 % (0.0-1.0); EOS # 0.0 10^3/uL (0.0-0.5); EOS % 0.0 % (0.0-3.0); LYMPH # 0.6 10^3/uL (1.5-5.0); LYMPH % 4.1 % (24.0-44.0); MONO # 1.3 10^3/uL (0.0-0.8); MONO % 9.4 % (2.0-8.0); NEUTROPHILS # 12.2 10^3/uL (1.5-8.5); NEUTROPHILS % 85.0 % (36.0-66.0); PLATELET COUNT, AUTOMATED 235 10^3/uL (150-450)
[2025-07-02 07:02] LABS: CALCIUM LEVEL 7.5 MG/DL (8.3-10.6); CARBON DIOXIDE LEVEL 25.0 MMOL/L (20-31); CHLORIDE LEVEL 105.0 MMOL/L (98-107); CREATININE FOR GFR 1.8 MG/DL (0.55-1.30); GLOMERULAR FILTRATION RATE 29.9 (>39); POTASSIUM SERUM 4.0 MMOL/L (3.5-5.1); SODIUM LEVEL 142.0 MMOL/L (136-145)
[2025-07-02 09:21] LABS: C REACTIVE PROTEIN QUANTITATIV 19.86 MG/DL (<1.0)
[2025-07-02] MEDS: LIDOCAINE W/EPINEPHrine 1% 20 ML VIAL SC ONE (10:27)
[2025-07-02] MEDS: VANCOMYCIN HCL 750 MG, VIAL MATE ADAPTER 1 EACH in NS 250 ML IV SCH (10:57)
[2025-07-02] MEDS: ONDANSETRON 4MG/2ML VIAL IV PRN (13:51)
[2025-07-02] MEDS ORDERED: GLUCOSE 4 GM CHEW PO PRN (17:55)
[2025-07-02] MEDS ORDERED: DEXTROSE 50% 50 ML SYRINGE IV PRN (17:55)
[2025-07-02] MEDS ORDERED: GLUCAGON INJ 1 MG VIAL SC PRN (17:55)
[2025-07-02] MEDS: HEPARIN LOCK FLUSH 100 UNITS/ML 3 ML SYRINGE IV SCH (18:37)
[2025-07-02] MEDS: INSULIN LISPRO (NovoLOG) PER UNIT SC SCH (20:10)
[2025-07-03 04:00] VITALS: BP 142/71; TEMP 98.8; O2SAT 93
[2025-07-03 06:24] LABS: BASO # 0.0 10^3/uL (0.0-0.2); BASO % 0.2 % (0.0-1.0); EOS # 0.0 10^3/uL (0.0-0.5); EOS % 0.0 % (0.0-3.0); LYMPH # 0.7 10^3/uL (1.5-5.0); LYMPH % 5.4 % (24.0-44.0); MONO # 1.3 10^3/uL (0.0-0.8); MONO % 10.1 % (2.0-8.0); NEUTROPHILS # 10.5 10^3/uL (1.5-8.5); NEUTROPHILS % 83.2 % (36.0-66.0); PLATELET COUNT, AUTOMATED 287 10^3/uL (150-450)
[2025-07-03 06:48] LABS: CALCIUM LEVEL 7.0 MG/DL (8.3-10.6); CARBON DIOXIDE LEVEL 25.0 MMOL/L (20-31); CHLORIDE LEVEL 102.0 MMOL/L (98-107); CREATININE FOR GFR 2.07 MG/DL (0.55-1.30); GLOMERULAR FILTRATION RATE 25.3 (>39); POTASSIUM SERUM 4.0 MMOL/L (3.5-5.1); SODIUM LEVEL 138.0 MMOL/L (136-145)
[2025-07-03] MEDS: INSULIN LISPRO (NovoLOG) PER UNIT SC SCH (07:30)
[2025-07-03] MEDS ORDERED: SENNA 8.6 MG TAB PO PRN (10:45)
[2025-07-03] MEDS: SODIUM CHLORIDE 0.9% INJ 10 ML SYR IV SCH (11:28)
[2025-07-03] MEDS: DOCUSATE SODIUM 100 MG CAPSULE PO SCH (11:42)
[2025-07-03 12:00] VITALS: BP 128/52; TEMP 98.6; O2SAT 90
[2025-07-03 19:46] VITALS: BP 131/65; TEMP 98.2; O2SAT 95
[2025-07-03] MEDS: SODIUM CHLORIDE 0.9% INJ 10 ML SYR IV PRN (20:22)
[2025-07-03] MEDS: HEPARIN LOCK FLUSH 100 UNITS/ML 3 ML SYRINGE IV PRN (20:22)
[2025-07-04] VITALS (10 sets, daily range): BP systolic 134–145; BP diastolic 58–96; TEMP 97.3–98.6; O2SAT 91–96
[2025-07-04 06:45] LABS: BASO # 0.0 10^3/uL (0.0-0.2); BASO % 0.3 % (0.0-1.0); EOS # 0.0 10^3/uL (0.0-0.5); EOS % 0.0 % (0.0-3.0); LYMPH # 0.9 10^3/uL (1.5-5.0); LYMPH % 9.9 % (24.0-44.0); MONO # 1.1 10^3/uL (0.0-0.8); MONO % 11.5 % (2.0-8.0); NEUTROPHILS # 7.1 10^3/uL (1.5-8.5); NEUTROPHILS % 77.2 % (36.0-66.0); PLATELET COUNT, AUTOMATED 291 10^3/uL (150-450)
[2025-07-04 07:18] LABS: CALCIUM LEVEL 7.2 MG/DL (8.3-10.6); CARBON DIOXIDE LEVEL 25.0 MMOL/L (20-31); CHLORIDE LEVEL 106.0 MMOL/L (98-107); CREATININE FOR GFR 2.29 MG/DL (0.55-1.30); GLOMERULAR FILTRATION RATE 22.4 (>39); POTASSIUM SERUM 3.9 MMOL/L (3.5-5.1); SODIUM LEVEL 142.0 MMOL/L (136-145)
[2025-07-04] MEDS: LINEZOLID 600 MG TABLET PO SCH (17:32)
[2025-07-05 04:23] VITALS: BP 157/69; TEMP 97.9; O2SAT 97
[2025-07-05 06:58] LABS: BASO # 0.0 10^3/uL (0.0-0.2); BASO % 0.3 % (0.0-1.0); EOS # 0.0 10^3/uL (0.0-0.5); EOS % 0.0 % (0.0-3.0); LYMPH # 0.9 10^3/uL (1.5-5.0); LYMPH % 10.3 % (24.0-44.0); MONO # 1.0 10^3/uL (0.0-0.8); MONO % 12.0 % (2.0-8.0); NEUTROPHILS # 6.5 10^3/uL (1.5-8.5); NEUTROPHILS % 75.8 % (36.0-66.0); PLATELET COUNT, AUTOMATED 350 10^3/uL (150-450)
[2025-07-05 07:20] LABS: CALCIUM LEVEL 7.5 MG/DL (8.3-10.6); CARBON DIOXIDE LEVEL 26.0 MMOL/L (20-31); CHLORIDE LEVEL 106.0 MMOL/L (98-107); CREATININE FOR GFR 2.07 MG/DL (0.55-1.30); GLOMERULAR FILTRATION RATE 25.3 (>39); POTASSIUM SERUM 4.0 MMOL/L (3.5-5.1); SODIUM LEVEL 140.0 MMOL/L (136-145)
[2025-07-05] MEDS ORDERED: LINE1TAB6 PO (11:57)
[2025-07-05 12:00] VITALS: BP 136/72; TEMP 98.1; O2SAT 97
== END 2025-07-05 14:15 | disposition home or self-care (01) | DRG 872 ==
LOC: M ED 11:17 → M ED INP 14:46 → M MSPAV 17:03
PROVIDERS: ADMIT Internal Medicine Nephrology; ATTEND Internal Medicine
PROC: 0Y9C0ZZ Drainage of Right Upper Leg, Open Approach (ICD-10-PCS; principal; 2025-07-02)
PROC: 30233N1 Transfusion of Nonautologous Red Blood Cells into Peripheral Vein, Percutaneous Approach (ICD-10-PCS; 2025-07-04)
DX: A41.9 Sepsis, unspecified organism (principal); R18.8 Other ascites; L02.415 Cutaneous abscess of right lower limb; C49.5 Malignant neoplasm of connective and soft tissue of pelvis; N17.9 Acute kidney failure, unspecified; E03.9 Hypothyroidism, unspecified; I12.9 Hypertensive chronic kidney disease with stage 1 through stage 4 chronic kidney disease, or unspecified chronic kidney disease; C55 Malignant neoplasm of uterus, part unspecified; D50.9 Iron deficiency anemia, unspecified; E11.22 Type 2 diabetes mellitus with diabetic chronic kidney disease; N18.30 Chronic kidney disease, stage 3 unspecified; M51.369 Other intervertebral disc degeneration, lumbar region without mention of lumbar back pain or lower extremity pain; D64.9 Anemia, unspecified; Z92.21 Personal history of antineoplastic chemotherapy; Z79.899 Other long term (current) drug therapy; H40.9 Unspecified glaucoma; Z79.890 Hormone replacement therapy

== ENCOUNTER → 2025-08-10 | Outpatient (REF) | payer MEDICARE, OTHER ==
[~2025-08-10] MED LIST changes: +CIPR250T3 PO; +FURO20TA2 PO; +LINE1TAB6 PO; -UNRESOLVED CLARIFICATION ENTRY XX SCH
[2025-08-10 18:59] LABS: IRON (FE) 51.0 UG/DL (50-170); PERCENT SATURATION 21.1 % (13.2-45.0)
== END ==
LOC: M LAB REF 17:39
PROVIDERS: ATTEND Nurse Practitioner Family
DX: D50.9 Iron deficiency anemia, unspecified (principal)